=== PATIENT | male | born 1970 | race Caucasian/White ===

== ENCOUNTER 2019-06-01 02:04 | Inpatient (IN) | payer OTHER ==
[~2019-06-01] VITALS: Ht 182.9 cm; Wt 75.5 kg
[2019-06-01 03:44] VITALS: Ht 182.9 cm; Wt 75.5 kg
[2019-06-01 03:50] VITALS: BP 151/94; PULSE 76; RESP 18
[2019-06-01] MEDS ORDERED: morphine 4 MG/ML VIAL IV PRN (05:30)
[2019-06-01] MEDS ORDERED: ALBUTEROL/IPRATROPIUM (NEB) 3 ML AMP HHN PRN (05:30)
[2019-06-01] MEDS ORDERED: NACL 0.9% 3 ML SYG IV SCH (05:30)
[2019-06-01] MEDS ORDERED: ONDANSETRON 4 MG INJ IV PRN (05:30)
[2019-06-01] MEDS: DEXTROSE 5%-0.45% NACL 1,000 ML IV SCH ×3 (05:34→23:42)
[2019-06-01] MEDS: KETOROLAC 30 MG INJ IV PRN (05:39)
[2019-06-01 07:33] VITALS: BP 118/73; PULSE 63; RESP 20
[2019-06-01] MEDS: FAMOTIDINE 20 MG INJ IV SCH ×2 (09:21→21:21)
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
[2019-06-01 13:31] VITALS: BP 120/61; PULSE 71; RESP 18
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
[2019-06-01 20:00] VITALS: BP 142/85; PULSE 66; RESP 18
[2019-06-02 02:00] VITALS: BP 113/86; PULSE 62; RESP 17
[2019-06-02] MEDS: KETOROLAC 30 MG INJ IV PRN ×2 (04:46→08:42)
[2019-06-02 07:46] VITALS: BP 137/79; PULSE 64; RESP 18
[2019-06-02] MEDS: DEXTROSE 5%-0.45% NACL 1,000 ML IV SCH (08:13)
[2019-06-02] MEDS: FAMOTIDINE 20 MG INJ IV SCH ×2 (08:13→21:04)
[2019-06-02 14:00] VITALS: BP 143/74; PULSE 72; RESP 18
--- NOTE | 2019-06-02 15:07 | PN ---
Date/Time of Note Date/Time of Note DATE: 06/02/19 TIME: 15:07 Assessment/Plan VTE Prophylaxis Risk score (from Ns)>0 risk: 1 SCD applied (from Ns): Yes Pharmacological prophylaxis: NA/contraindicated Pharm contraindication: low risk/ambulating Lines/Catheters IV Catheter Type (from Nrsg): Peripheral IV Urinary Cath still in place: No Assessment/Plan Hospital Course SUBJECTIVE: Tolerates clear diet. no fevers. having mild abd pain but improved. OBJECTIVE: Vital signs-see below PHYSICAL EXAM: Constitutional: Adequately built,not in acute distress. HEENT: Head atraumatic and normocephalic. Eyes: Extraocular muscles intact. Anicteric sclerae. Pupils equal bilaterally, reactive to light. NECK: Supple without lymph node. CHEST: Clear and good breath sounds equally. No wheezing. No rhonchi. HEART: S1, S2. Regular rate and rhythm. ABDOMEN: Mild tenderness to periumbilical/RUQ area. no rebound tenderness. Bowel sounds were present. EXTREMITIES: No cyanosis, clubbing or edema. NEUROLOGIC: Alert and oriented x3. No focal deficit. No sensory deficit. PSYCHOSOCIAL: No signs of depression. INTEGUMENTARY: No open wounds. ASSESSMENT AND PLAN:48 yo M w/etoh abuse , recently diagnosed alcoholic pancreatitis here w/ ABD pain, found to have acute pancreatitis. Acute pancreatitis, likely gallstone versus alcoholic -Improving nicely. Continue pain control. Advance diet as tolerated. -appreciate surgical/gi f/u=>Recommended outpatient laparoscopic cholecystectomy EtOH abuse, sober~3 WKS -Advised on not to restart drinking. DVT prophylaxis: SCDs/ambulation. Disposition: Advance diet as tolerated. DC in a.m. if pain is controlled and tolerating diet. Patient was seen in collaboration with Dr. Malave. Result Diagram: 06/02/19 0437 06/02/197 Results 24hrs Laboratory Tests Test 06/02/19 04:37 White Blood Count 4.5 L Red Blood Count 4.27 L Hemoglobin 13.4 L Hematocrit 38.6 L Mean Corpuscular Volume 90.4 Mean Corpuscular Hemoglobin 31.4 Mean Corpuscular Hemoglobin Concent 34.7 Red Cell Distribution Width 12.7 Platelet Count 206 Mean Platelet Volume 10.5 H Immature Granulocytes % 0.200 Neutrophils % 50.1 Lymphocytes % 35.1 Monocytes % 11.0 Eosinophils % 2.9 Basophils % 0.7 Nucleated Red Blood Cells % 0.0 Immature Granulocytes # 0.010 Neutrophils # 2.2 Lymphocytes # 1.6 Monocytes # 0.5 Eosinophils # 0.1 Basophils # 0.0 Nucleated Red Blood Cells # 0.0 Sodium Level 138 Potassium Level 4.1 Chloride Level 100 Carbon Dioxide Level 30 Anion Gap 8 Blood Urea Nitrogen 6 L Creatinine 0.61 Est Glomerular Filtrat Rate mL/min > 60 Glucose Level 172 Calcium Level 9.2 Phosphorus Level 4.6 Magnesium Level 1.8 Total Bilirubin 0.6 Direct Bilirubin 0.00 Indirect Bilirubin 0.6 Aspartate Amino Transf (AST/SGOT) 53 H Alanine Aminotransferase (ALT/SGPT) 61 Alkaline Phosphatase 98 Total Protein 6.9 Albumin 3.5 Amylase Level 85 Lipase 734 H Exam/Review of Systems Exam Vitals Vital Signs Date Temp Pulse Resp B/P (MAP) Pulse Ox O2 O2 Flow FiO2 Time Delivery Rate 06/02/19 98.0 64 18 137/79 100 Room Air 07:46 (98) Intake and Output 06/01/19 06/01/19 06/02/19 1414:59 22:59 06:59 IntakeIntake Total 1000 ml 360 ml 1720 ml OutputOutput Total 1375 ml 300 ml 800 ml BalanceBalance -375 ml 60 ml 920 ml Results Results 24hrs Laboratory Tests Test 06/02/19 04:37 White Blood Count 4.5 L Red Blood Count 4.27 L Hemoglobin 13.4 L Hematocrit 38.6 L Mean Corpuscular Volume 90.4 Mean Corpuscular Hemoglobin 31.4 Mean Corpuscular Hemoglobin Concent 34.7 Red Cell Distribution Width 12.7 Platelet Count 206 Mean Platelet Volume 10.5 H Immature Granulocytes % 0.200 Neutrophils % 50.1 Lymphocytes % 35.1 Monocytes % 11.0 Eosinophils % 2.9 Basophils % 0.7 Nucleated Red Blood Cells % 0.0 Immature Granulocytes # 0.010 Neutrophils # 2.2 Lymphocytes # 1.6 Monocytes # 0.5 Eosinophils # 0.1 Basophils # 0.0 Nucleated Red Blood Cells # 0.0 Sodium Level 138 Potassium Level 4.1 Chloride Level 100 Carbon Dioxide Level 30 Anion Gap 8 Blood Urea Nitrogen 6 L Creatinine 0.61 Est Glomerular Filtrat Rate mL/min > 60 Glucose Level 172 Calcium Level 9.2 Phosphorus Level 4.6 Magnesium Level 1.8 Total Bilirubin 0.6 Direct Bilirubin 0.00 Indirect Bilirubin 0.6 Aspartate Amino Transf (AST/SGOT) 53 H Alanine Aminotransferase (ALT/SGPT) 61 Alkaline Phosphatase 98 Total Protein 6.9 Albumin 3.5 Amylase Level 85 Lipase 734 H Medications Medication Current Medications Dextrose/Sodium Chloride 1,000 ml @ 120 mls/hr Q8H20M IV Last administered on 06/02/19 08:13; Admin Dose 120 MLS/HR; Start 06/01/19 at 05:12 IV Flush (NS 3 ml) 3 ml PER PROTOCOL IV ; Start 06/01/19 at 05:30 Ondansetron HCl (Zofran Inj) 4 mg Q6H PRN IV NAUSEA/VOMITING Last administered on 06/02/19 08:42; Admin Dose 4 MG; Start 06/01/19 at 05:30 Morphine Sulfate (morphine) 3 mg Q4H PRN IV .SEVERE PAIN 7-10; Start 06/01/19 at 05:30 Famotidine (Pepcid Iv) 20 mg Q12 IV Last administered on 06/02/19 08:13; Admin Dose 20 MG; Start 06/01/19 at 09:00 Albuterol/ Ipratropium (Duoneb) 3 ml Q2H RESP THERAPY PRN HHN SHORTNESS OF BREATH; Start 06/01/19 at 05:30 Ketorolac Tromethamine (Toradol) 30 mg Q6H PRN IV PAIN LEVEL 1-3 Last administered on 06/02/19 08:42; Admin Dose 30 MG; Start 06/01/19 at 05:30; Stop 06/04/19 at 05:29 WALLY HAIDER V. [employer] Jun 02, 2019 15:07
[2019-06-02] MEDS ORDERED: SOD CHLORIDE 0.9% 500 ML IV ONE (16:00)
[2019-06-02] MEDS: SOD CHLORIDE 0.9% 1,000 ML IV SCH (16:19)
[2019-06-02] MEDS ORDERED: BISACODYL (EC) 5 MG TAB PO PRN (16:30)
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
[2019-06-02 20:00] VITALS: BP 123/73; PULSE 81; RESP 18
[2019-06-03 02:00] VITALS: BP 119/67; PULSE 67; RESP 18
[2019-06-03] MEDS: SOD CHLORIDE 0.9% 1,000 ML IV SCH ×3 (02:00→12:00)
[2019-06-03 07:44] VITALS: BP 127/82; PULSE 93; RESP 19
[2019-06-03] MEDS: FAMOTIDINE 20 MG INJ IV SCH (09:26)
[2019-06-03] MEDS: KETOROLAC 30 MG INJ IV PRN (09:43)
--- NOTE | 2019-06-03 11:50 | PDOCDIS ---
Discharge Instructions CONDITION [id number] Patient Condition: [id number] Stable HOME CARE INSTRUCTIONS: [id number] Diet Instructions: [id number] Regular FOLLOW UP/APPOINTMENTS Follow-up Plan Follow-up with in 2-4 weeks Anmol Viveros MD Specialty General Surgery Comments Office Address [address] [place] [address] Office Follow-up with in 4 weeks Kate Maki MD Specialty Gastroenterology Comments Office Address [address] [place] [address] Office Follow-up with primary care physician in 1 week Stop drinking alcohol WALLY HAIDER NP Jun 03, 2019 11:50
[2019-06-03] MEDS ORDERED: HYDR-4011 PO (11:51)
[2019-06-03] MEDS ORDERED: BISA5TAB6 PO (11:51)
--- NOTE | 2019-06-03 12:01 | DS ---
Date/Time of Note Date/Time of Note DATE: 06/03/19 TIME: 11:54 Discharge Summary Admission/Discharge Info Admit Date/Time Jun 01, 2019 at 03:51 Discharge Date/Time Discharge Diagnosis Acute pancreatitis, likely gallstone versus alcoholic.resolved EtOH abuse, sober~3 WKS Cholelithiasis-oupt elective surgery recommended. Consults dr.lyass rose Procedures 06/01/2019: HIDA scan FINDINGS: There is prompt uptake of radiotracer in the liver with prompt excretion into the bile ducts and small bowel. There is normal visualization of the gallbladder, consistent with a patent cystic duct. RPTAT: AA IMPRESSION: Unremarkable HIDA scan. Hospital Course 48 yo M w/etoh abuse , recently diagnosed alcoholic pancreatitis here w/ ABD pain, found to have acute pancreatitis. Patient was counseled on alcohol cessation. He was also being followed by surgery and GI team as patient was also noted with likely gallstones. Surgery recommended outpatient laparoscopic cholecystectomy after patient recuperated completely from pancreatitis. Patient did well on medical management. He was continued on IV fluids and pain medications. Lipase trended down. Patient was able to tolerate diet well. Patient was also noted with hepatic steatosis and GI recommended outpatient follow-up. At this time, patient is back to his baseline. He is stable for outpatient PCP/surgery/GI follow-up. Patient was given information of community clinic that he can follow-up. Again, patient has repeatedly counseled on alcohol cessation and he verbalized understanding. Approximately 60 m spent on coordinating the discharge on this patient. Patient was seen in collaboration with Dr. Malave. Home Meds Active Scripts Bisacodyl* (Bisacodyl*) 5 Mg Tablet., 10 MG PO DAILY PRN for CONSTIPATION, #30 TAB Prov:WALLY HAIDER NP 06/03/19 Follow-up Plan Follow-up with in 2-4 weeks Anmol Viveros MD Specialty General Surgery Comments Office Address [address] [place] [address] Office Follow-up with in 4 weeks Kate Maki MD Specialty Gastroenterology Comments Office Address [address] [place] [address] Office Follow-up with primary care physician in 1 week-need screening colonoscopy in 4 wks Stop drinking alcohol Primary Care Provider Care Physician No Primary WALLY HAIDER NP Jun 03, 2019 12:01
[2019-06-03 14:17] VITALS: BP 114/61; PULSE 78; RESP 20
== END 2019-06-03 14:20 | disposition home or self-care (01) | DRG 440 ==
LOC: 2NE 03:51
PROVIDERS: ADMIT Internal Medicine; ATTEND Internal Medicine
DX: K85.20 Alcohol induced acute pancreatitis without necrosis or infection (principal); K85.10 Biliary acute pancreatitis without necrosis or infection; F10.10 Alcohol abuse, uncomplicated; K80.20 Calculus of gallbladder without cholecystitis without obstruction
CPT/HCPCS: 78226; 80048; 80053; 80076; 82150; 83690; 83735; 84100; 84478; 85025; 87081; A9537; J1885; J2405; J7030; J7040; J7042